=== PATIENT | male | born 1960 | race African-American/Black ===

== ENCOUNTER 2020-11-14 07:14 | Day surgery (SDC) | payer OTHER ==
[2020-11-12 12:16] VITALS: BMI 25.0
[2020-11-14] MEDS ORDERED: PROPOFOL 20 ML ONE ×3 (09:16→10:31)
== END 2020-11-14 11:40 | disposition home or self-care (01) ==
LOC: CSHSDC 07:14 → EEVIPCON 07:14 → CSHSDC 11:40
PROVIDERS: ATTEND Internal Medicine Gastroenterology
PROC: 0DBK8ZZ Excision of Ascending Colon, Via Natural or Artificial Opening Endoscopic (ICD-10-PCS; principal; 2020-11-14)
DX: C18.2 Malignant neoplasm of ascending colon (principal); Z12.11 Encounter for screening for malignant neoplasm of colon; D12.3 Benign neoplasm of transverse colon; D12.5 Benign neoplasm of sigmoid colon; K57.30 Diverticulosis of large intestine without perforation or abscess without bleeding; I10 Essential (primary) hypertension
CPT/HCPCS: 88177; 88305; 88361; 88374; J2704